=== PATIENT | female | born 1995 | race Caucasian/White ===

== ENCOUNTER → 2021-08-18 | Outpatient (CLI) | payer MEDICAID, OTHER | END | disposition home or self-care (01) | LOC: LABWHC1 10:48 | PROVIDERS: ATTEND Emergency Medicine | DX: Z20.822 Contact with and (suspected) exposure to COVID-19 (principal) | CPT/HCPCS: 87635 ==

== ENCOUNTER 2022-04-11 22:37 | Observation (INO) | payer MEDICAID ==
[2022-04-11 23:15] LABS: Appearance,Urine Clear (Clear); Bacteria,Urine Rare /hpf; Bilirubin,Urine Negative (Negative); Blood,Urine Negative (Negative); Color,Urine Yellow; Glucose,Urine (UA) Negative (Negative); Hyaline Casts,Urine 1 /lpf (0-2); Ketones,Urine Trace (Negative); Leukocyte Esterase,Urine Small (Negative); Mucus,Urine Many /hpf; Nitrite,Urine Negative (Negative); Protein,Urine Trace (Negative); RBC,Urine 1 /hpf (0-5); Squamous Epithelial Cell,Urine 6 /hpf (0-4); Urobilinogen,Urine <2.0 mg/dL (<2.0); WBC,Urine 2 /hpf (0-5)
[2022-04-12] MEDS ORDERED: KETOROLAC 15 MG/ML 1 ML VIAL IVP STA (03:20)
[2022-04-12] MEDS ORDERED: SODIUM CHLORIDE 0.9% 1,000 ML IV STA (03:20)
[2022-04-12] MEDS ORDERED: ONDANSETRON 4 MG/2 ML VIAL IVP STA (03:20)
--- NOTE | 2022-04-12 03:21 | ED ---
Abdominal Pain HPI - General Source: patient Mode of arrival: ambulatory Limitations: no limitations - History of Present Illness MD Complaint: abdominal pain -: days(s) Location: RUQ, RLQ, L flank, R flank Radiation: RUQ, back Migration to: suprapubic Severity: moderate Severity scale (1-10): 7 Quality: sharp Consistency: constant, intermittent Improves With: nothing Worsens With: nothing Associated Symptoms: nausea, vomiting Treatments Prior to Arrival: NSAIDs <Clovis Alfred - Last Filed: 04/12/22 04:58> <Clovis Aguila - Last Filed: 04/12/22 09:00> - General Chief Complaint: Abdominal Pain Stated Complaint: Abd Pain - History of Present Illness Initial Comments: This is a 26-year-old female with episodic abdominal pain worsening pain last night into today. Back pain right-sided abdominal pain shoulder pain. Positive nausea and vomiting. No fevers. Patient did think she might of had a kidney stone. Possible chance of . Otherwise no travel history or sick contacts nor with similar complaints (Clovis Alfred) Review of Systems ROS Other: All systems not noted in ROS Statement are negative. <Clovis Alfred - Last Filed: 04/12/22 04:58> ROS Other: All systems not noted in ROS Statement are negative. <Clovis Aguila - Last Filed: 04/12/22 09:00> ROS Statement: Those systems with pertinent positive or pertinent negative responses have been documented in the HPI. Past Medical History Past Medical History: No Reported History History of Any Multi-Drug Resistant Organisms: None Reported Past Surgical History: No Surgical Hx Reported Past Psychological History: No Psychological Hx Reported Smoking Status: Never smoker Past Alcohol Use History: None Reported Past Drug Use History: None Reported <Clovis Alfred - Last Filed: 04/12/22 04:58> General Exam Limitations: no limitations General appearance: alert, in no apparent distress Head exam: Present: atraumatic, normocephalic, normal inspection Eye exam: Present: normal appearance, PERRL, EOMI. Absent: scleral icterus, conjunctival injection, periorbital swelling ENT exam: Present: normal exam, mucous membranes moist Neck exam: Present: normal inspection. Absent: tenderness, meningismus, lymphadenopathy Respiratory exam: Present: normal lung sounds bilaterally. Absent: respiratory distress, wheezes, rales, rhonchi, stridor Cardiovascular Exam: Present: normal rhythm, tachycardia, normal heart sounds. Absent: systolic murmur, diastolic murmur, rubs, gallop, clicks GI/Abdominal exam: Present: soft, tenderness, normal bowel sounds. Absent: distended, guarding, rebound, rigid Extremities exam: Present: normal inspection, full ROM, normal capillary refill. Absent: tenderness, pedal edema, joint swelling, calf tenderness Back exam: Present: normal inspection Neurological exam: Present: alert, oriented X3, CN II-XII intact Psychiatric exam: Present: normal affect, normal mood Skin exam: Present: warm, dry, intact, normal color. Absent: rash <Clovis Alfred - Last Filed: 04/12/22 04:58> Course Vital Signs 04/11/22 22:42 Temperature 97.9 F Pulse Rate 106 H Respiratory 20 Rate Blood Pressure 149/98 O2 Sat by Pulse 97 Oximetry Medical Decision Making - Lab Data Result diagrams: 04/12/22 03:59 04/12/22 03:59 <Clovis Alfred - Last Filed: 04/12/22 04:58> - Lab Data Result diagrams: 04/12/22 03:59 04/12/22 03:59 <Clovis Aguila - Last Filed: 04/12/22 09:00> - Medical Decision Making Ultrasound showed a 9 mm stone at the gallbladder neck. I went back in and reevaluated the patient she continued to have right upper quadrant abdominal pain. I spoke with Dr. Peralta he agreed to admit the patient admitted the patient I wrote admitting orders. (Clovis Aguila) - Lab Data Lab Results 04/11/22 04/11/22 04/12/22 Range/Units 22:52 22:52 03:59 WBC 9.1 (3.8-10.6) k/uL RBC 4.58 (3.80-5.40) m/uL Hgb 13.9 (11.4-16.0) gm/dL Hct 41.7 (34.0-46.0) % MCV 91.1 (80.0-100.0) fL MCH 30.4 (25.0-35.0) pg MCHC 33.4 (31.0-37.0) g/dL RDW 12.5 (11.5-15.5) % Plt Count 208 (150-450) k/uL MPV 8.7 Neutrophils % 67 % Lymphocytes % 25 % Monocytes % 4 % Eosinophils % 3 % Basophils % 1 % Neutrophils # 6.1 (1.3-7.7) k/uL Lymphocytes # 2.2 (1.0-4.8) k/uL Monocytes # 0.4 (0-1.0) k/uL Eosinophils # 0.2 (0-0.7) k/uL Basophils # 0.1 (0-0.2) k/uL Sodium (137-145) mmol/L Potassium (3.5-5.1) mmol/L Chloride (98-107) mmol/L Carbon Dioxide (22-30) mmol/L Anion Gap mmol/L BUN (7-17) mg/dL Creatinine (0.52-1.04) mg/dL Est GFR (CKD-EPI)AfAm (>60 ml/min/1.73 sqM) Est GFR (CKD-EPI)NonAf (>60 ml/min/1.73 sqM) Glucose (74-99) mg/dL Calcium (8.4-10.2) mg/dL Total Bilirubin (0.2-1.3) mg/dL AST (14-36) U/L ALT (4-34) U/L Alkaline Phosphatase (38-126) U/L Total Protein (6.3-8.2) g/dL Albumin (3.5-5.0) g/dL Amylase (30-110) U/L Lipase (23-300) U/L Urine Color Yellow Urine Appearance Clear (Clear) Urine pH 6.0 (5.0-8.0) Ur Specific [place] 1.030 (1.001-1.035) Urine Protein Trace H (Negative) Urine Glucose (UA) Negative (Negative) Urine Ketones Trace H (Negative) Urine Blood Negative (Negative) Urine Nitrite Negative (Negative) Urine Bilirubin Negative (Negative) Urine Urobilinogen <2.0 (<2.0) mg/dL Ur Leukocyte Esterase Small H (Negative) Urine RBC 1 (0-5) /hpf Urine WBC 2 (0-5) /hpf Ur Squamous Epith Cells 6 H (0-4) /hpf Urine Bacteria Rare H (None) /hpf Hyaline Casts 1 (0-2) /lpf Urine Mucus Many H (None) /hpf Urine HCG, Qual Not Detected (Not Detectd) 04/12/22 Range/Units 03:59 WBC (3.8-10.6) k/uL RBC (3.80-5.40) m/uL Hgb (11.4-16.0) gm/dL Hct (34.0-46.0) % MCV (80.0-100.0) fL MCH (25.0-35.0) pg MCHC (31.0-37.0) g/dL RDW (11.5-15.5) % Plt Count (150-450) k/uL MPV Neutrophils % % Lymphocytes % % Monocytes % % Eosinophils % % Basophils % % Neutrophils # (1.3-7.7) k/uL Lymphocytes # (1.0-4.8) k/uL Monocytes # (0-1.0) k/uL Eosinophils # (0-0.7) k/uL Basophils # (0-0.2) k/uL Sodium 136 L (137-145) mmol/L Potassium 3.9 (3.5-5.1) mmol/L Chloride 104 (98-107) mmol/L Carbon Dioxide 23 (22-30) mmol/L Anion Gap 9 mmol/L BUN 9 (7-17) mg/dL Creatinine 0.59 (0.52-1.04) mg/dL Est GFR (CKD-EPI)AfAm >90 (>60 ml/min/1.73 sqM) Est GFR (CKD-EPI)NonAf >90 (>60 ml/min/1.73 sqM) Glucose 86 (74-99) mg/dL Calcium 9.4 (8.4-10.2) mg/dL Total Bilirubin 0.6 (0.2-1.3) mg/dL AST 33 (14-36) U/L ALT 41 H (4-34) U/L Alkaline Phosphatase 89 (38-126) U/L Total Protein 7.7 (6.3-8.2) g/dL Albumin 4.7 (3.5-5.0) g/dL Amylase 65 (30-110) U/L Lipase 79 (23-300) U/L Urine Color Urine Appearance (Clear) Urine pH (5.0-8.0) Ur Specific Ken[place] (1.001-1.035) Urine Protein (Negative) Urine Glucose (UA) (Negative) Urine Ketones (Negative) Urine Blood (Negative) Urine Nitrite (Negative) Urine Bilirubin (Negative) Urine Urobilinogen (<2.0) mg/dL Ur Leukocyte Esterase (Negative) Urine RBC (0-5) /hpf Urine WBC (0-5) /hpf Ur Squamous Epith Cells (0-4) /hpf Urine Bacteria (None) /hpf Hyaline Casts (0-2) /lpf Urine Mucus (None) /hpf Urine HCG, Qual (Not Detectd) Disposition <Clovis Alfred - Last Filed: 04/12/22 04:58> Time of Disposition: 08:54 <Clovis Aguila - Last Filed: 04/12/22 09:00> Clinical Impression: Cholelithiasis with obstruction, Biliary colic Disposition: ADMITTED IP TO THIS [facility] Referrals: Tamar Wells DO [Primary Care Provider] - 1-2 days
[2022-04-12 04:14] LABS: Basophils # (A) 0.1 k/uL (0-0.2); Basophils % (A) 1 %; Eosinophils # (A) 0.2 k/uL (0-0.7); Eosinophils % (A) 3 %; HCT 41.7 % (34.0-46.0); HGB 13.9 gm/dL (11.4-16.0); Lymphocytes # (A) 2.2 k/uL (1.0-4.8); Lymphocytes % (A) 25 %; MCH 30.4 pg (25.0-35.0); MCHC 33.4 g/dL (31.0-37.0); MCV 91.1 fL (80.0-100.0); Mean Platelet Volume 8.7; Monocytes # (A) 0.4 k/uL (0-1.0); Monocytes % (A) 4 %; Neutrophils # (A) 6.1 k/uL (1.3-7.7); Neutrophils % (A) 67 %; Platelet Count 208 k/uL (150-450); RBC 4.58 m/uL (3.80-5.40); RDW 12.5 % (11.5-15.5); WBC 9.1 k/uL (3.8-10.6)
[2022-04-12 04:31] LABS: ALT 41 U/L (4-34); AST 33 U/L (14-36); African American GFR (CKD) >90 (>60 ml/min/1.73 sqM); Albumin 4.7 g/dL (3.5-5.0); Alkaline Phosphatase 89 U/L (38-126); Amylase 65 U/L (30-110); Anion Gap 9 mmol/L; Blood Urea Nitrogen 9 mg/dL (7-17); Calcium 9.4 mg/dL (8.4-10.2); Carbon Dioxide 23 mmol/L (22-30); Chloride 104 mmol/L (98-107); Glucose 86 mg/dL (74-99); Lipase 79 U/L (23-300); Non-African American GFR(CKD) >90 (>60 ml/min/1.73 sqM); Potassium 3.9 mmol/L (3.5-5.1); Sodium 136 mmol/L (137-145); Total Bilirubin 0.6 mg/dL (0.2-1.3); Total Protein 7.7 g/dL (6.3-8.2)
--- NOTE | 2022-04-12 04:47 | CT ---
EXAM: CT Abdomen and Pelvis Without Intravenous Contrast CLINICAL HISTORY: ITS.REASON CT Reason: abdominal pain TECHNIQUE: Axial computed tomography images of the abdomen and pelvis without intravenous contrast. CTDI is 11.1 mGy and DLP is 598.8 mGy-cm. This CT exam was performed using one or more of the following dose reduction techniques: automated exposure control, adjustment of the mA and/or kV according to patient size, and/or use of iterative reconstruction technique. COMPARISON: No relevant prior studies available. FINDINGS: Lung bases: No mass. No consolidation. ABDOMEN: Liver: Unremarkable. Gallbladder and bile ducts: Distended gallbladder with 18 mm stone at the neck. Mild CBD dilatation. Pancreas: No ductal dilation. Spleen: Unremarkable. Adrenals: Unremarkable. Kidneys and ureters: No obstructing stones. No hydronephrosis. Stomach and bowel: No bowel obstruction. No bowel wall thickening. PELVIS: Appendix: No evidence of appendicitis. Bladder: No stones. Reproductive: Unremarkable. ABDOMEN and PELVIS: Intraperitoneal space: Unremarkable. Bones/joints: No acute fractures. Soft tissues: Unremarkable. Vasculature: No abdominal aortic aneurysm. Lymph nodes: No enlarged lymph nodes. IMPRESSION: Distended gallbladder with 18 mm stone at the neck. Mild CBD dilatation. Recommend ultrasound
[2022-04-12] MEDS ORDERED: HYDROmorphone 1 MG/ML 1 ML SYRINGE IVP STA (06:06)
--- NOTE | 2022-04-12 08:11 | US ---
EXAMINATION TYPE: US gallbladder DATE OF EXAM: 04/12/2022 COMPARISON: Correlation CT same day CLINICAL HISTORY: 26-year-old female with RUQ pain. EXAM MEASUREMENTS: Liver Length: 16.7 cm Gallbladder Wall: 0.2 cm CBD: 0.5 cm Right Kidney: 9.4 x 4.5 x 4.3 cm Pancreas: Not well visualized, only portions seen due to bowel gas. Liver: Overall homogeneous appearance. No focal lesion. Gallbladder: Borderline distended up to 3.8 x 7.9 cm. No wall thickening or surrounding fluid. There is a 9 mm shadowing calculus at the neck of the gallbladder. Evidence for sonographic Elizabeth's sign: neg CBD: Upper limits of normal. Right Kidney: No hydronephrosis or masses seen IMPRESSION: 1. A 9 mm stone at the neck of the gallbladder. No ancillary imaging findings of acute cholecystitis at this time. If right upper quadrant pain persists or worsens and there is concern for the developme nt of acute cholecystitis, either repeat ultrasound or HIDA scan can be considered. 2. Bile duct upper limits of normal in caliber. Correlate with alkaline phosphatase and bilirubin lev els.
[2022-04-12] MEDS ORDERED: SODIUM CHLORIDE 0.9% 1,000 ML IV ONE (09:00)
[2022-04-12] MEDS: ACETAMINOPHEN TAB 325 MG TAB PO PRN ×2 (10:49→21:54)
[2022-04-12] MEDS ORDERED: IV FLUID CONTINUATION 1,000 ML IV ONE (11:13)
[2022-04-12] MEDS ORDERED: ONDANSETRON 4 MG/2 ML VIAL ONE (11:17)
[2022-04-12] MEDS ORDERED: HEPARIN SODIUM,PORCINE/PF 5,000 UNIT/0.5 ML SYRINGE SQ ONE (11:17)
[2022-04-12] MEDS ORDERED: DEXAMETHASONE SOD PHOSPHATE 4 MG/ML 1 ML VIAL IV ONE (11:22)
[2022-04-12] MEDS ORDERED: SCOPOLAMINE 1 MG/72 HR PATCH TRANSDERM ONE (11:22)
[2022-04-12] MEDS ORDERED: MIDAZOLAM 2 MG/2 ML VIAL IVP ONE ×2 (11:39→11:42)
--- NOTE | 2022-04-12 11:55 | P.GSHP ---
History of Present Illness H&P Date: 04/12/22 Chief Complaint: Right upper quadrant pain Is a 26-year-old female who was admitted through the emergency room with complaints of right quadrant pain. Patient has a gallstone impacted at the neck of the gallbladder. Patient had crampy pain upon one week ago. The pain recu rred this morning. Past Medical History Past Medical History: No Reported History Additional Past Medical History / Comment(s): Abnormal pap test with recent LEEP procedure. History of Any Multi-Drug Resistant Organisms: None Reported Past Surgical History: No Surgical Hx Reported Additional Past Surgical History / Comment(s): Leep procedure Past Anesthesia/Blood Transfusion Reactions: No Reported Reaction Additional Past Anesthesia/Blood Transfusion Reaction / Comment(s): Pt has never had general or spinal anesthesia. She tolerated sedation for her LEEP procedure. Smoking Status: Never smoker - Past Family History Mother Family Medical History: Hyperlipidemia Father Family Medical History: No Reported History Additional Family Medical History / Comment(s): Father is healthy. Medications and Allergies Home Medications Medication Instructions Recorded Confirmed Type No Known Home Medications 04/12/22 04/12/22 History Allergies Allergy/AdvReac Type Severity Reaction Status Date / Time Penicillins Allergy Rash/Hives Verified 04/12/22 09:06 Surgical - Exam Vital Signs Temp Pulse Resp BP Pulse Ox 97.9 F 106 H 20 149/98 97 04/11/22 22:42 04/11/22 22:42 04/11/22 22:42 04/11/22 22:42 04/11/22 22:42 - General well developed, well nourished, no distress - Eyes PERRL - ENT normal pinna - Neck no masses - Respiratory normal expansion - Cardiovascular Rhythm: regular - Abdomen Abdomen: soft, non tender Results - Labs 04/12/22 03:59 04/12/22 03:59 Abnormal Lab Results - Last 24 Hours (Table) 04/11/22 04/12/22 Range/Units 22:52 03:59 Sodium 136 L (137-145) mmol/L ALT 41 H (4-34) U/L Urine Protein Trace H (Negative) Urine Ketones Trace H (Negative) Ur Leukocyte Esterase Small H (Negative) Ur Squamous Epith Cells 6 H (0-4) /hpf Urine Bacteria Rare H (None) /hpf Urine Mucus Many H (None) /hpf Diabetes panel 04/12/22 Range/Units 03:59 Sodium 136 L (137-145) mmol/L Potassium 3.9 (3.5-5.1) mmol/L Chloride 104 (98-107) mmol/L Carbon Dioxide 23 (22-30) mmol/L BUN 9 (7-17) mg/dL Creatinine 0.59 (0.52-1.04) mg/dL Glucose 86 (74-99) mg/dL Calcium 9.4 (8.4-10.2) mg/dL AST 33 (14-36) U/L ALT 41 H (4-34) U/L Alkaline Phosphatase 89 (38-126) U/L Total Protein 7.7 (6.3-8.2) g/dL Albumin 4.7 (3.5-5.0) g/dL Calcium panel 04/12/22 Range/Units 03:59 Calcium 9.4 (8.4-10.2) mg/dL Albumin 4.7 (3.5-5.0) g/dL Pituitary panel 04/12/22 Range/Units 03:59 Sodium 136 L (137-145) mmol/L Potassium 3.9 (3.5-5.1) mmol/L Chloride 104 (98-107) mmol/L Carbon Dioxide 23 (22-30) mmol/L BUN 9 (7-17) mg/dL Creatinine 0.59 (0.52-1.04) mg/dL Glucose 86 (74-99) mg/dL Calcium 9.4 (8.4-10.2) mg/dL Adrenal panel 04/12/22 Range/Units 03:59 Sodium 136 L (137-145) mmol/L Potassium 3.9 (3.5-5.1) mmol/L Chloride 104 (98-107) mmol/L Carbon Dioxide 23 (22-30) mmol/L BUN 9 (7-17) mg/dL Creatinine 0.59 (0.52-1.04) mg/dL Glucose 86 (74-99) mg/dL Calcium 9.4 (8.4-10.2) mg/dL Total Bilirubin 0.6 (0.2-1.3) mg/dL AST 33 (14-36) U/L ALT 41 H (4-34) U/L Alkaline Phosphatase 89 (38-126) U/L Total Protein 7.7 (6.3-8.2) g/dL Albumin 4.7 (3.5-5.0) g/dL Assessment and Plan Assessment: Right upper quadrant pain Cholelithiasis Patient will undergo laparoscopic cholecystectomy.
[2022-04-12] MEDS ORDERED: SODIUM CHLORIDE 0.9% 50 ML with ceFAZolin 2,000 MG IV ONE ×2 (12:45)
[2022-04-12] MEDS ORDERED: LACTATED RINGERS 1,000 ML IV ONE (13:08)
[2022-04-12] MEDS ORDERED: BUPIVACAIN-EPI 0.25%-1:200,000 30 ML VIAL SQ ONE (13:08)
[2022-04-12] MEDS ORDERED: ONDANSETRON 4 MG TAB PO PRN (13:13)
[2022-04-12] MEDS ORDERED: HYDROmorphone 1 MG/ML 1 ML SYRINGE IVP PRN (13:13)
--- NOTE | 2022-04-12 13:16 | P.OP ---
Date of Procedure: 04/12/22 Preoperative Diagnosis: Cholecystitis Postoperative Diagnosis: Cholecystitis Procedure(s) Performed: Laparoscopic cholecystectomy Anesthesia: SAMMIE Surgeon: Flynn Peralta Estimated Blood Loss (ml): 5 Pathology: other (Gallbladder) Condition: stable Disposition: PACU Description of Procedure: The patient was placed on the operating table. The patient received a general endotracheal tube anesthesia. The patients abdomen was prepped and draped in the usual sterile fashion. Through an infraumbilical stab incision, the fascia of the anterior abdominal wall was grasped with a pair of Kochers and then the Veress needle was placed in the peritoneal cavity. Position of the Veress needle was confirmed with positive drop test. The abdomen was then insufflated. After adequate insufflation, the 10 mm trocar was placed in the peritoneal cavity. Following this the laparoscope was placed in the peritoneal cavity. The patient was placed in the head-up, right side up position and then a 5 mm trocar was placed in the right lateral and right subcostal position under direct visualization. A 8 mm trocar was placed in the epigastric position. The gallbladder was grasped in the fundus and infundibulum. Traction on the gallbladder was placed in the lateral and the cephalad positions. The triangle of Calot was visualized.. The cystic duct was bluntly dissected until the union of the cystic duct and common bile duct was seen. A critical view of safety was achieved. The cystic duct was then divided and sealed with the Harmonic scissors. A PDS Endoloop was then placed throughout the cystic duct stump. The cystic artery divided and sealed with the Harmonic scissors. The gallbladder was then removed from the liver bed using Harmonic scissors. The gallbladder was then extracted through the epigastric port site. Operative field was checked for any bleeding spots and Harmonic scissors was used to coagulate the liver bed. The abdomen was irrigated. The trocars were removed. The skin was closed using interrupted 3-0 Vicryl suture. Dermabond dressing were applied. The patient tolerated the procedure well.
[2022-04-12] MEDS: HYDROmorphone 0.5 MG/0.5 ML SYRINGE IVP PRN ×2 (15:34→21:46)
[2022-04-12] MEDS ORDERED: BENZOCAINE/MENTHOL LOZENG 1 EACH LOZENGE MUCOUS MEM PRN (17:46)
[2022-04-12] MEDS: HYDROcodone/APAP 7.5-325MG 1 EACH TAB PO PRN (20:39)
[2022-04-13] MEDS: HYDROcodone/APAP 7.5-325MG 1 EACH TAB PO PRN (02:15)
[2022-04-13] MEDS: ACETAMINOPHEN TAB 325 MG TAB PO PRN ×2 (05:22→20:53)
[2022-04-13] MEDS ORDERED: SODIUM CHLORIDE 0.9% 999 ML IV ONE (06:08)
[2022-04-13] MEDS ORDERED: LEVOFLOXACIN 750MG-D5W PMX 750 MG in DEXTROSE/WATER 1 150ML.BAG IVPB ONE (06:30)
[2022-04-13] MEDS: HYDROmorphone 0.5 MG/0.5 ML SYRINGE IVP PRN (08:37)
[2022-04-13] MEDS: ENOXAPARIN 40 MG/0.4 ML SYRINGE SQ SCH (08:38)
[2022-04-13 08:46] LABS: Basophils % (A) 0 %; Eosinophils % (A) 0 %; HCT 33.2 % (34.0-46.0); HGB 11.5 gm/dL (11.4-16.0); Lymphocytes # (A) 0.4 k/uL (1.0-4.8); Lymphocytes % (A) 8 %; MCH 32.2 pg (25.0-35.0); MCHC 34.8 g/dL (31.0-37.0); MCV 92.5 fL (80.0-100.0); Mean Platelet Volume 8.6; Monocytes # (A) 0.3 k/uL (0-1.0); Monocytes % (A) 5 %; Neutrophils # (A) 4.7 k/uL (1.3-7.7); Neutrophils % (A) 87 %; Platelet Count 161 k/uL (150-450); RBC 3.59 m/uL (3.80-5.40); RDW 12.6 % (11.5-15.5); WBC 5.5 k/uL (3.8-10.6)
[2022-04-13 08:49] LABS: ALT 58 U/L (4-34); AST 49 U/L (14-36); African American GFR (CKD) >90 (>60 ml/min/1.73 sqM); Albumin 3.9 g/dL (3.5-5.0); Albumin/Globulin Ratio 1.6; Alkaline Phosphatase 91 U/L (38-126); Anion Gap 8 mmol/L; Blood Urea Nitrogen 5 mg/dL (7-17); Carbon Dioxide 20 mmol/L (22-30); Chloride 106 mmol/L (98-107); Globulin 2.5 g/dL; Glucose 89 mg/dL (74-99); Non-African American GFR(CKD) >90 (>60 ml/min/1.73 sqM); Potassium 3.2 mmol/L (3.5-5.1); Sodium 134 mmol/L (137-145); Total Bilirubin 0.2 mg/dL (0.2-1.3); Total Protein 6.4 g/dL (6.3-8.2)
[2022-04-13] MEDS: IBUPROFEN 600 MG TAB PO PRN (12:39)
--- NOTE | 2022-04-13 13:43 | P.PN ---
Subjective Progress Note Date: 04/13/22 CHIEF COMPLAINT: Cholecystitis HISTORY OF PRESENT ILLNESS: Patient status post laparoscopic cholecystectomy. Postop day #1. Patient complaining of abdominal pain. Overall not feeling well. She did complain of nausea. She did have temps through the night as high as 102. She had mild tachycardia. Patient reports no significant improvement with the [place]. She is tolerating clear liquids. She does report hoarseness and mild cough. Patient is currently afebrile With mild tachycardia. Medicine service has ordered fluid bolus and blood culture. WBC 5.5 Hgb 11.5 sodium 134 potassium 3.2 creatinine 0.60 AST 49 ALT 58 total bilirubin 0.2 Patient seen and examined with ger PHYSICAL EXAM: VITAL SIGNS: Reviewed. GENERAL: Well-developed in no acute distress. HEENT: No sclera icterus. Extraocular movements grossly intact. Moist buccal mucosa. Head is atraumatic, normocephalic. ABDOMEN: Soft. Nondistended. Incision sites clean dry and intact . Mild tenderness at incision sites NEUROLOGIC: Alert and oriented. Cranial nerves II through XII grossly intact. ASSESSMENT: 1. Acute cholecystitis status post laparoscopic cholecystectomy 2. Hypokalemia PLAN: -Advance diet as tolerated to regular -Add Tylenol and Motrin to help with pain and fever -Add incentive spirometer -Encouraged patient to ambulate -Continue IV fluids -Continue antibiotics -Continue supportive care -Anticipate discharge tomorrow Physician Canopy Stringer note has been reviewed by physician. Signing provider agrees with the documented findings, assessment, and plan of care. Objective - Vital Signs Vital signs: Vital Signs Temp 98 F 04/13/22 13:35 Pulse 112 H 04/13/22 13:35 Resp 18 04/13/22 13:35 BP 110/69 04/13/22 13:35 Pulse Ox 97 04/13/22 13:35 FiO2 Intake & Output 04/12/22 04/13/22 04/13/22 18:59 06:59 18:59 Intake Total 1150 240 Output Total 5 Balance 1145 240 Weight 74.843 kg Intake: IV 1150 Oral 240 Output: Estimated Blood Loss 5 Other: Voiding Method Toilet # Voids 1 3 1 - Labs CBC & Chem 7: 04/13/22 07:44 04/13/22 07:44 Labs: Abnormal Lab Results - Last 24 Hours (Table) 04/13/22 04/13/22 Range/Units 07:44 07:44 RBC 3.59 L (3.80-5.40) m/uL Hct 33.2 L (34.0-46.0) % Lymphocytes # 0.4 L (1.0-4.8) k/uL Sodium 134 L (137-145) mmol/L Potassium 3.2 L (3.5-5.1) mmol/L Carbon Dioxide 20 L (22-30) mmol/L BUN 5 L (7-17) mg/dL Calcium 8.0 L (8.4-10.2) mg/dL AST 49 H (14-36) U/L ALT 58 H (4-34) U/L
[2022-04-13] MEDS ORDERED: POTASSIUM CHLORIDE ER 20 MEQ TAB.ER PO STA (13:49)
[2022-04-13] MEDS: SODIUM CHLORIDE 0.9% 1,000 ML IV SCH (15:11)
[2022-04-14] MEDS: IBUPROFEN 600 MG TAB PO PRN (01:49)
[2022-04-14] MEDS: SODIUM CHLORIDE 0.9% 1,000 ML IV SCH ×2 (01:50→08:18)
[2022-04-14] MEDS ORDERED: LEVOFLOXACIN 500MG-D5W PMX 500 MG in DEXTROSE/WATER 1 100ML.BAG IVPB SCH (08:00)
[2022-04-14] MEDS: ENOXAPARIN 40 MG/0.4 ML SYRINGE SQ SCH (08:17)
[2022-04-14] MEDS: ACETAMINOPHEN TAB 325 MG TAB PO PRN (08:17)
--- NOTE | 2022-04-14 09:08 | P.CONS ---
History of Present Illness - Reason for Consult Consult date: 04/13/22 medical eval - History of Present Illness Chantel Juan is a 26 yo F with no significant PMH who had been experiencing RUQ pain and nausea over the past few days which worsened after eating. She complains she had been experiencing nausea as well as pain. She presented to the ED and was found to have a 9mm obstructing stone. Pt is POD#1 after cholecystectomy, she is overall feeling better and the pain has significantly subsided. Pt did experience sweats and fever last night after her surgery with Tmax 102. She continues to complain of malaise and body aches this morning, denies abdominal pain, nausea, vomiting. Labs reviewed and WBC 5.5 today down from 9 yesterday. Review of Systems All systems: negative Constitutional: Denies chills, Denies fever Eyes: denies blurred vision, denies pain Ears, nose, mouth and throat: Denies headache, Denies sore throat Cardiovascular: Denies chest pain, Denies shortness of breath Respiratory: Denies cough Gastrointestinal: Reports abdominal pain, Reports nausea, Denies diarrhea, Denie s vomiting Genitourinary: Denies dysuria, Denies hematuria Musculoskeletal: Denies myalgias Integumentary: Denies pruritus, Denies rash Neurological: Denies numbness, Denies weakness Psychiatric: Denies anxiety, Denies depression Endocrine: Denies fatigue, Denies weight change Past Medical History Past Medical History: No Reported History Additional Past Medical History / Comment(s): Abnormal pap test with recent LEEP procedure. History of Any Multi-Drug Resistant Organisms: None Reported Past Surgical History: No Surgical Hx Reported Additional Past Surgical History / Comment(s): Leep procedure Past Anesthesia/Blood Transfusion Reactions: No Reported Reaction Additional Past Anesthesia/Blood Transfusion Reaction / Comm: Pt has never had general or spinal anesthesia. She tolerated sedation for her LEEP procedure. Smoking Status: Never smoker - Past Family History Mother Family Medical History: Hyperlipidemia Father Family Medical History: No Reported History Additional Family Medical History / Comment(s): Father is healthy. Medications and Allergies Home Medications Medication Instructions Recorded Confirmed Type No Known Home Medications 04/12/22 04/12/22 History Allergies Allergy/AdvReac Type Severity Reaction Status Date / Time Penicillins Allergy Rash/Hives Verified 04/12/22 09:06 Physical Exam Vitals: Vital Signs Temp Pulse Pulse Resp BP Pulse Ox 04/14/22 07:00 99.1 F 85 17 124/86 96 04/14/22 01:56 98.7 F 73 17 127/77 99 04/13/22 19:02 98.6 F 86 15 113/65 99 04/13/22 14:00 18 04/13/22 13:35 98 F 112 H 18 110/69 97 Intake and Output 04/13/22 04/14/22 04/14/22 22:59 06:59 14:59 Intake Total 240 Balance 240 Intake: Oral 240 Other: Voiding Method Toilet Toilet # Voids 2 3 General: well developed, well nourished female in NAD HEENT: normocephalic, atraumatic, mucus membranes moist Neck: supple, no thyromegaly or JVD CV: RRR, no murmur Lungs: Normal effort, clear throughout Abd: soft, epigastric and RUQ tenderness. Incision c/d/i Neuro: alert and oriented x3, no focal deficit Skin: warm and dry Results CBC & Chem 7: 04/13/22 07:44 04/13/22 07:44 Assessment and Plan Plan: 1. Acute cholecystitis. S/p cholecystectomy. Postop course complicated by fever, start IV levaquin, advance diet as tolerated, pain control. Continue lovenox
[2022-04-14 10:08] LABS: Basophils # (A) 0.02 X 10*3/uL (0.00-0.10); Basophils % (A) 0.5 %; Eosinophils # (A) 0.01 X 10*3/uL (0.04-0.35); Eosinophils % (A) 0.2 %; HCT 34.8 % (37.2-46.3); HGB 11.5 g/dL (12.0-15.0); Immature Grans, Automated 0.2 %; Lymphocytes # (A) 1.47 X 10*3/uL (0.90-5.00); Lymphocytes % (A) 35.9 %; MCH 30.6 pg (27.0-32.0); MCV 92.6 fL (80.0-97.0); Monocytes # (A) 0.57 X 10*3/uL (0.20-1.00); Monocytes % (A) 13.9 %; NRBC Per 100 WBC 0 /100 WBCS (0.0-0.0); Neutrophils # (A) 2.01 X 10*3/uL (1.80-7.70); Neutrophils % (A) 49.3 %; Platelet Count 178 X 10*3/uL (140-440); RBC 3.76 X 10*6/uL (4.10-5.20); RDW 13.3 % (11.5-14.5); WBC 4.09 X 10*3/uL (4.50-10.00)
[2022-04-14 10:30] LABS: ALT 58 U/L (8-44); AST 40 U/L (13-35); African American GFR (CKD) 145.7 (60.0-200.0); Albumin 3.9 g/dL (3.8-4.9); Albumin/Globulin Ratio 1.81 (1.60-3.17); Alkaline Phosphatase 90 U/L (41-126); BUN/Creat Ratio 7.26 Ratio (12.00-20.00); Blood Urea Nitrogen 4.3 mg/dL (9.0-27.0); Calcium 8.5 mg/dL (8.7-10.3); Chloride 108 mmol/L (96-109); Globulin 2.2 g/dL (1.6-3.3); Glucose 89 mg/dL (70-110); Non-African American GFR(CKD) 125.8 (60.0-200.0); Sodium 141 mmol/L (135-145); Total Bilirubin <0.15 mg/dL (0.30-1.20); Total Protein 6.1 g/dL (6.2-8.2)
[2022-04-14] MEDS ORDERED: FLUCONAZOLE 100 MG TAB PO SCH (10:45)
[2022-04-14 13:40] VITALS: BP 127/82; PULSE 84; RESP 18; TEMP 98.8
== END 2022-04-14 17:20 | disposition home or self-care (01) ==
LOC: EC 22:37 → 6NMEDSUR 04-12 09:01
PROVIDERS: ADMIT Surgery; ATTEND Surgery
DX: K80.12 Calculus of gallbladder with acute and chronic cholecystitis without obstruction (principal); E87.6 Hypokalemia; Z98.890 Other specified postprocedural states; Z83.438 Family history of other disorder of lipoprotein metabolism and other lipidemia; Z88.0 Allergy status to penicillin
CPT/HCPCS: 96374; 96375; 99285; 36415; 88304; 80053 ×3; 82150; 83605; 83690; 85025 ×3; 81001; 81025; 87040; 76705; 74176; 47562; G0378 ×3; J2250; J1100; J2405; J0690; J1956 ×2; J1650 ×2; J1170 ×3; J1885